=== PATIENT | female | born 1960 | race Caucasian/White ===

== ENCOUNTER 2016-09-01 13:13 | Inpatient (IN) | payer MEDICAID ==
[~2016-09-01] VITALS: Ht 154.9 cm; Wt 69.9 kg
[~2016-09-01 13:13] MED LIST: ACT30 PO; ALDACTONE25 MG PO; AMA1 PO; AMARYL4 MG PO; APAP500 MG PO; APR25 PO; ATA25 PO; ATENOLOL25 MG PO; CALCITRIOL0.25 MCG PO; CIPRO500 MG PO; CIPROFLOXACIN250 M2 PO; COR3 PO; COZ25 PO; DILTIAZEM HCL240 MG PO; FERROUS SULFAT325 M2 PO; FUROSEMIDE40 MG PO; GLIPIZIDE2.5 M1 PO; GLU850 PO; HCTZ/LISINOPRIL1 TA1 PO; HYDRALAZINE HCL25 MG PO; HYDRALAZINE HYD50 MG PO; INSN SC; INSULIN; KEFLEX500 MG PO; LABETALOL HYDR100 MG PO; LAC PO; LASIX40 MG PO; LEVAQUIN500 MG PO; LIPI20 PO; LIPITOR80 MG PO; LOT20 PO; NEU300 PO; NOR10 PO; ONDANSETRON4 M3 SL; RANITIDINE HCL150 M1 PO; REG5 PO; REGLAN10 MG PO; RENVELA800 M1 PO; SIMVASTATIN20 M1 PO; SODIUM BICARBO650 MG PO; TAMOXIFEN CITRA20 MG PO; TRAMADOL HCL50 MG PO; VITAMIN D50000 I4 PO; ZOVIRAX400 MG PO
[2016-09-01 14:22] LABS: PLATELET COUNT 225 x10^3mcL (130-400)
[2016-09-01 14:36] LABS: RED CELL DISTRIBUTION WIDTH 16.3 % (11.5-14.5)
[2016-09-01 14:38] LABS: BILIRUBIN TOTAL 0.41 mg/dL (0.20-1.00); CALCIUM 8.3 mg/dL (8.5-10.1); CARBON DIOXIDE 28.2 mmol/L (21-32); TOTAL PROTEIN, SERUM 7.5 g/dL (6.4-8.2)
[2016-09-01 14:39] LABS: ALBUMIN 3.3 g/dL (3.4-5.0)
[2016-09-01 14:41] LABS: CREATININE SERUM 6.5 mg/dL (0.6-1.0)
[2016-09-01 14:55] LABS: BAND NEUTROPHIL 7 % (0-10); BASOPHIL 0 % (0-2); MONOCYTE 5 % (0-7); SEGMENTED NEUTROPHILS 81 % (37-75); rbc morphology (normal/abnorm) ABNORMAL (NORMAL)
[2016-09-01] MEDS ORDERED: NEXIUM20 MG PO (18:05)
[2016-09-01] MEDS ORDERED: REN800 PO (18:05)
[2016-09-01] MEDS ORDERED: RENA-VITE RX1 TAB PO (18:06)
[2016-09-01] MEDS ORDERED: SENSIPAR30 M1 PO (18:07)
[2016-09-01] MEDS ORDERED: NOL10 PO (18:08)
[2016-09-01] MEDS ORDERED: COR6 PO (18:16)
[2016-09-01 20:23] VITALS: BP 158/76
[2016-09-01 20:35] LABS: CHOLESTEROL/HDL RATIO 4.2; MAGNESIUM 2.4 mg/dL (1.8-2.4); PHOSPHOROUS 5.2 mg/dL (2.5-4.9)
[2016-09-01 20:44] LABS: T3 TOTAL 0.75 ng/mL
[2016-09-01 21:03] LABS: FREE T4 1.54 ng/dL (0.76-1.46); FREE THYROXINE INDEX 3.9 ug/dL (1.4-4.5)
[2016-09-01 22:58] VITALS: BP 140/46
[2016-09-02 05:23] VITALS: BP 120/56
[2016-09-02 05:30] LABS: microscopic required? YES; urine erythrocyte 1+ (NEGATIVE)
[2016-09-02 05:39] LABS: AMPHETAMINE QUAL UR NONE DETECTED (NEG <=1000)
[2016-09-02 06:34] LABS: CALCIUM 7.6 mg/dL (8.5-10.1); CARBON DIOXIDE 26.5 mmol/L (21-32); MAGNESIUM 2.2 mg/dL (1.8-2.4); PHOSPHOROUS 7.9 mg/dL (2.5-4.9); POTASSIUM SERUM 4.4 mmol/L (3.5-5.1)
[2016-09-02 06:37] LABS: CREATININE SERUM 7.2 mg/dL (0.6-1.0)
[2016-09-02 07:03] LABS: BASOPHIL % 0.3 % (0-2); PLATELET COUNT 196 x10^3mcL (130-400)
[2016-09-02 07:07] LABS: RED CELL DISTRIBUTION WIDTH 16.2 % (11.5-14.5)
[2016-09-02 13:38] VITALS: BP 101/47
[2016-09-02 16:00] VITALS: BP 141/57
[2016-09-02 17:46] VITALS: BP 141/59
[2016-09-02 21:59] VITALS: BP 99/52
[2016-09-03 06:14] VITALS: BP 96/55
[2016-09-03 06:18] LABS: PLATELET COUNT 184 x10^3mcL (130-400)
[2016-09-03 06:46] LABS: CARBON DIOXIDE 28.3 mmol/L (21-32); PHOSPHOROUS 5.9 mg/dL (2.5-4.9); POTASSIUM SERUM 3.9 mmol/L (3.5-5.1)
[2016-09-03 06:51] LABS: ALBUMIN 2.6 g/dL (3.4-5.0)
[2016-09-03 06:52] LABS: CREATININE SERUM 5.3 mg/dL (0.6-1.0)
[2016-09-03 07:19] LABS: RED CELL DISTRIBUTION WIDTH 16.3 % (11.5-14.5)
[2016-09-03 10:38] VITALS: BP 134/59
[2016-09-03 10:49] LABS: ATYPICAL LYMPH 1 %; BAND NEUTROPHIL 5 % (0-10); BASOPHIL 0 % (0-2); MONOCYTE 20 % (0-7); SEGMENTED NEUTROPHILS 47 % (37-75); rbc morphology (normal/abnorm) ABNORMAL (NORMAL)
[2016-09-03 10:51] LABS: PLATELET MORPHOLOGY PLATELETS DECREASED
[2016-09-03 17:00] VITALS: BP 134/59
[2016-09-03] MEDS ORDERED: LEVAQUIN500 M1 PO (17:00)
[2016-09-03] MEDS ORDERED: FLA250 PO (17:01)
[2016-09-03] MEDS ORDERED: LAC PO (17:01)
== END 2016-09-03 17:37 | disposition home or self-care (01) | DRG 720 ==
LOC: ED 13:13 → DU 19:13 → MU 09-03 13:09
PROVIDERS: Emergency Medicine; Family Medicine; ADMIT Family Medicine
DX: A41.9 Sepsis, unspecified organism (principal); N17.0 Acute kidney failure with tubular necrosis; E43 Unspecified severe protein-calorie malnutrition; N18.6 End stage renal disease; D68.69 Other thrombophilia; E87.8 Other disorders of electrolyte and fluid balance, not elsewhere classified; E11.65 Type 2 diabetes mellitus with hyperglycemia; E87.1 Hypo-osmolality and hyponatremia; C50.911 Malignant neoplasm of unspecified site of right female breast; A04.9 Bacterial intestinal infection, unspecified; E83.39 Other disorders of phosphorus metabolism; M43.06 Spondylolysis, lumbar region; K21.9 Gastro-esophageal reflux disease without esophagitis; K42.9 Umbilical hernia without obstruction or gangrene; E83.51 Hypocalcemia; N20.0 Calculus of kidney; Z99.2 Dependence on renal dialysis; M62.50 Muscle wasting and atrophy, not elsewhere classified, unspecified site; Z79.810 Long term (current) use of selective estrogen receptor modulators (SERMs)
CPT/HCPCS: 80307; 82962; 83880; 84439; 87046; 87046-59; C9113; J1940; J1956; J2270; J2405; J2765; J3490; J7030; J7040; Q0092

== ENCOUNTER 2016-09-14 05:26 | Emergency (ER) | payer MEDICAID ==
[~2016-09-14 05:26] MED LIST changes: +COR6 PO; +FLA250 PO; +LEVAQUIN500 M1 PO; +NEXIUM20 MG PO; +NOL10 PO; +REN800 PO; +RENA-VITE RX1 TAB PO; +SENSIPAR30 M1 PO
[2016-09-14 06:14] VITALS: BP 182/81
== END 2016-09-14 06:14 | disposition home or self-care (01) ==
LOC: ED 05:26
DX: R68.84 Jaw pain (principal); I12.0 Hypertensive chronic kidney disease with stage 5 chronic kidney disease or end stage renal disease; N18.6 End stage renal disease

== ENCOUNTER 2016-10-18 06:05 | Emergency (ER) | payer MEDICAID ==
[2016-10-18 07:13] LABS: BASOPHIL % 0.9 % (0-2); PLATELET COUNT 211 x10^3mcL (130-400)
[2016-10-18 07:19] LABS: BILIRUBIN TOTAL 0.3 mg/dL (0.20-1.00); CALCIUM 9.1 mg/dL (8.5-10.1); CARBON DIOXIDE 26.5 mmol/L (21-32); POTASSIUM SERUM 5.1 mmol/L (3.5-5.1); TOTAL PROTEIN, SERUM 7.3 g/dL (6.4-8.2)
[2016-10-18 07:27] LABS: ALBUMIN 3.3 g/dL (3.4-5.0)
[2016-10-18 07:28] LABS: CREATININE SERUM 7.1 mg/dL (0.6-1.0)
[2016-10-18 07:40] VITALS: BP 120/57
== END 2016-10-18 07:40 | disposition home or self-care (01) ==
LOC: ED 06:05
PROVIDERS: Emergency Medicine
DX: I12.0 Hypertensive chronic kidney disease with stage 5 chronic kidney disease or end stage renal disease (principal); E11.22 Type 2 diabetes mellitus with diabetic chronic kidney disease; N18.6 End stage renal disease; K21.9 Gastro-esophageal reflux disease without esophagitis; Z99.2 Dependence on renal dialysis; Z85.3 Personal history of malignant neoplasm of breast
CPT/HCPCS: 83880; J2405; J3490

== ENCOUNTER 2017-02-28 11:44 | Inpatient (IN) | payer MEDICAID ==
[~2017-02-28] VITALS: Ht 154.9 cm; Wt 74.5 kg
[~2017-02-28 11:44] MED LIST changes: -FUROSEMIDE40 MG PO
[2017-02-28 13:02] LABS: BASOPHIL % 0.2 % (0-2); PLATELET COUNT 233 x10^3mcL (130-400)
[2017-02-28 13:04] LABS: CALCIUM 8.5 mg/dL (8.5-10.1); CREATININE SERUM 3.2 mg/dL (0.6-1.0); POTASSIUM SERUM 4.3 mmol/L (3.5-5.1)
[2017-02-28 13:07] LABS: RED CELL DISTRIBUTION WIDTH 15.5 % (11.5-14.5)
[2017-02-28 13:08] LABS: BILIRUBIN TOTAL 0.3 mg/dL (0.20-1.00); TOTAL PROTEIN, SERUM 7.7 g/dL (6.4-8.2)
[2017-02-28 13:09] LABS: ALBUMIN 3.2 g/dL (3.4-5.0)
[2017-02-28 15:16] VITALS: BP 188/78
[2017-02-28 16:28] LABS: CHOLESTEROL/HDL RATIO 4.8; MAGNESIUM 2.2 mg/dL (1.8-2.4); PHOSPHOROUS 3.8 mg/dL (2.5-4.9)
[2017-02-28 16:38] LABS: T3 TOTAL 0.89 ng/mL
[2017-02-28 16:56] LABS: FREE T4 1.24 ng/dL (0.76-1.46); FREE THYROXINE INDEX 3.8 ug/dL (1.4-4.5); T4(THYROXINE) 9.5 ug/dL (4.7-13.3)
[2017-02-28 21:05] VITALS: BP 167/71
[2017-03-01 05:37] VITALS: BP 128/59
[2017-03-01 07:06] LABS: BASOPHIL % 0.2 % (0-2); PLATELET COUNT 225 x10^3mcL (130-400); RED CELL DISTRIBUTION WIDTH 15.6 % (11.5-14.5)
[2017-03-01 08:07] LABS: CALCIUM 8.6 mg/dL (8.5-10.1); CARBON DIOXIDE 27.9 mmol/L (21-32); MAGNESIUM 2.4 mg/dL (1.8-2.4); PHOSPHOROUS 5.5 mg/dL (2.5-4.9)
[2017-03-01 08:13] LABS: CREATININE SERUM 4.6 mg/dL (0.6-1.0)
[2017-03-01] MEDS ORDERED: LIPI10 PO (13:19)
[2017-03-01] MEDS ORDERED: PRILOSEC OTC20 M1 PO (13:20)
[2017-03-01 13:43] VITALS: BP 128/59
[2017-03-01 14:09] VITALS: BP 133/51
== END 2017-03-01 16:27 | disposition home or self-care (01) | DRG 243 ==
LOC: ED 11:44 → DU 14:00
PROVIDERS: Emergency Medicine; ADMIT Family Medicine
DX: K21.9 Gastro-esophageal reflux disease without esophagitis (principal); G93.41 Metabolic encephalopathy; I42.9 Cardiomyopathy, unspecified; I12.0 Hypertensive chronic kidney disease with stage 5 chronic kidney disease or end stage renal disease; E44.0 Moderate protein-calorie malnutrition; E11.22 Type 2 diabetes mellitus with diabetic chronic kidney disease; N18.6 End stage renal disease; E11.65 Type 2 diabetes mellitus with hyperglycemia; C50.911 Malignant neoplasm of unspecified site of right female breast; E87.1 Hypo-osmolality and hyponatremia; E87.8 Other disorders of electrolyte and fluid balance, not elsewhere classified; I16.0 Hypertensive urgency; D63.1 Anemia in chronic kidney disease; E78.5 Hyperlipidemia, unspecified; E66.9 Obesity, unspecified; Z68.31 Body mass index [BMI] 31.0-31.9, adult; Z90.11 Acquired absence of right breast and nipple; Z79.810 Long term (current) use of selective estrogen receptor modulators (SERMs); Z99.2 Dependence on renal dialysis; Y84.1 Kidney dialysis as the cause of abnormal reaction of the patient, or of later complication, without mention of misadventure at the time of the procedure; Y92.009 Unspecified place in unspecified non-institutional (private) residence as the place of occurrence of the external cause
CPT/HCPCS: 82962; 83880; 84439; J1815; J2270; J2405; J7050; Q0092

== ENCOUNTER 2017-07-08 07:41 | Inpatient (IN) | payer MEDICAID ==
[~2017-07-08] VITALS: Ht 154.9 cm; Wt 78.2 kg
[~2017-07-08 07:41] MED LIST changes: +LIPI10 PO; +PRILOSEC OTC20 M1 PO
[2017-07-08 07:53] VITALS: Ht 154.9 cm; Wt 78.2 kg
[2017-07-08 10:09] LABS: BASOPHIL % 0.3 % (0-2); PLATELET COUNT 247 x10^3mcL (130-400)
[2017-07-08 10:15] LABS: RED CELL DISTRIBUTION WIDTH 17.1 % (11.5-14.5)
[2017-07-08 10:34] LABS: BILIRUBIN TOTAL 0.3 mg/dL (0.20-1.00); CALCIUM 8.1 mg/dL (8.5-10.1); CARBON DIOXIDE 31.7 mmol/L (21-32); TOTAL PROTEIN, SERUM 7.6 g/dL (6.4-8.2)
[2017-07-08 10:36] LABS: ALBUMIN 3.3 g/dL (3.4-5.0); CREATININE SERUM 5.7 mg/dL (0.6-1.0)
[2017-07-08 14:24] LABS: MAGNESIUM 2.5 mg/dL (1.8-2.4)
[2017-07-08] MEDS ORDERED: ATENOLOL25 MG PO (14:45)
[2017-07-08 14:53] LABS: FREE T4 1.09 ng/dL (0.76-1.46); FREE THYROXINE INDEX 2.9 ug/dL (1.4-4.5); T4(THYROXINE) 7.9 ug/dL (4.7-13.3)
[2017-07-08 15:46] VITALS: BP 134/59
[2017-07-08 15:54] LABS: T3 TOTAL 0.92 ng/mL
[2017-07-08] MEDS ORDERED: GOOD SENSE OMEP20 MG PO (19:10)
[2017-07-08] MEDS ORDERED: RENA-VITE1 TAB PO (19:10)
[2017-07-08] MEDS ORDERED: GLUCOTROL5 MG PO ×2 (19:13→19:14)
[2017-07-08 19:45] VITALS: BP 154/50
[2017-07-09 05:27] VITALS: BP 129/56
[2017-07-09 07:27] LABS: BASOPHIL % 0.2 % (0-2); PLATELET COUNT 232 x10^3mcL (130-400)
[2017-07-09 07:35] LABS: RED CELL DISTRIBUTION WIDTH 16.9 % (11.5-14.5)
[2017-07-09 07:39] LABS: CALCIUM 8.1 mg/dL (8.5-10.1); CARBON DIOXIDE 23.6 mmol/L (21-32); MAGNESIUM 2.6 mg/dL (1.8-2.4); PHOSPHOROUS 8.5 mg/dL (2.5-4.9)
[2017-07-09 07:40] LABS: CREATININE SERUM 6.9 mg/dL (0.6-1.0); POTASSIUM SERUM 6.3 mmol/L (3.5-5.1)
[2017-07-09 09:21] VITALS: BP 143/53
[2017-07-09 14:23] VITALS: BP 121/57
[2017-07-09 16:10] VITALS: BP 124/57
[2017-07-09 20:40] VITALS: BP 122/53
[2017-07-09 22:33] LABS: CARBON DIOXIDE 28.6 mmol/L (21-32); CREATININE SERUM 3.6 mg/dL (0.6-1.0); POTASSIUM SERUM 3.8 mmol/L (3.5-5.1)
[2017-07-09 22:37] LABS: CALCIUM 5.7 mg/dL (8.5-10.1)
[2017-07-09 23:24] LABS: CARBON DIOXIDE 23.5 mmol/L (21-32)
[2017-07-09 23:27] LABS: CREATININE SERUM 3.3 mg/dL (0.6-1.0)
[2017-07-09 23:28] LABS: CALCIUM 5.7 mg/dL (8.5-10.1)
[2017-07-10 03:30] LABS: UA SPECIFIC GRAVITY 1.015 (1.005-1.035); microscopic required? YES; urine erythrocyte TRACE (NEGATIVE)
[2017-07-10 03:38] LABS: AMPHETAMINE QUAL UR NONE DETECTED (NEG <=1000)
[2017-07-10 05:24] VITALS: BP 127/51
[2017-07-10 06:47] LABS: BASOPHIL % 0.6 % (0-2); PLATELET COUNT 221 x10^3mcL (130-400)
[2017-07-10 06:49] LABS: RED CELL DISTRIBUTION WIDTH 17.1 % (11.5-14.5)
[2017-07-10 07:08] LABS: CALCIUM 6.2 mg/dL (8.5-10.1); CARBON DIOXIDE 27.3 mmol/L (21-32); MAGNESIUM 2.1 mg/dL (1.8-2.4); PHOSPHOROUS 7.8 mg/dL (2.5-4.9); POTASSIUM SERUM 4.2 mmol/L (3.5-5.1)
[2017-07-10 07:56] LABS: CREATININE SERUM 4.4 mg/dL (0.6-1.0)
[2017-07-10 09:30] VITALS: BP 130/49
[2017-07-10] MEDS ORDERED: LAC PO (09:39)
[2017-07-10] MEDS ORDERED: CLINDAMYCIN HC300 MG PO (09:39)
[2017-07-10 13:50] VITALS: BP 142/62
== END 2017-07-10 14:01 | disposition home or self-care (01) | DRG 344 ==
LOC: ED 07:41 → DU 13:23
PROVIDERS: Emergency Medicine; Family Medicine
PROC: 5A1D70Z Performance of Urinary Filtration, Intermittent, Less than 6 Hours Per Day (ICD-10-PCS; principal; 2017-07-08)
DX: E11.628 Type 2 diabetes mellitus with other skin complications (principal); M86.9 Osteomyelitis, unspecified; N17.0 Acute kidney failure with tubular necrosis; E11.621 Type 2 diabetes mellitus with foot ulcer; E11.22 Type 2 diabetes mellitus with diabetic chronic kidney disease; L03.116 Cellulitis of left lower limb; I12.0 Hypertensive chronic kidney disease with stage 5 chronic kidney disease or end stage renal disease; N18.6 End stage renal disease; S92.405A Nondisplaced unspecified fracture of left great toe, initial encounter for closed fracture; L97.529 Non-pressure chronic ulcer of other part of left foot with unspecified severity; I12.9 Hypertensive chronic kidney disease with stage 1 through stage 4 chronic kidney disease, or unspecified chronic kidney disease; D63.1 Anemia in chronic kidney disease; E11.40 Type 2 diabetes mellitus with diabetic neuropathy, unspecified; G43.909 Migraine, unspecified, not intractable, without status migrainosus; E11.65 Type 2 diabetes mellitus with hyperglycemia; E78.5 Hyperlipidemia, unspecified; E66.9 Obesity, unspecified; K29.70 Gastritis, unspecified, without bleeding; E87.5 Hyperkalemia; E83.39 Other disorders of phosphorus metabolism; Z79.899 Other long term (current) drug therapy; Z82.49 Family history of ischemic heart disease and other diseases of the circulatory system; Z83.3 Family history of diabetes mellitus; Z99.2 Dependence on renal dialysis; Z85.3 Personal history of malignant neoplasm of breast; Z90.11 Acquired absence of right breast and nipple; Z68.31 Body mass index [BMI] 31.0-31.9, adult; X58.XXXA Exposure to other specified factors, initial encounter; Y93.89 Activity, other specified; Y92.89 Other specified places as the place of occurrence of the external cause; Y99.8 Other external cause status; E11.69 Type 2 diabetes mellitus with other specified complication
CPT/HCPCS: 82962; 83880; 84439; 87804; 97110-GP; 97116-GP; 97530-GP; J1885; J2405; J2543; J3370; J3490; J7030; J7050; Q0092

== ENCOUNTER 2018-05-03 01:11 | Inpatient (IN) | payer MEDICAID ==
[~2018-05-03] VITALS: Ht 165.1 cm; Wt 76.5 kg
[~2018-05-03 01:11] MED LIST changes: +CLINDAMYCIN HC300 MG PO; +GLUCOTROL5 MG PO; +GOOD SENSE OMEP20 MG PO; +RENA-VITE1 TAB PO
--- NOTE | 2018-05-03 01:38 | NUR ---
DR LEDESMA BEDSIDE FOR MSE.
[2018-05-03 02:20] LABS: BASOPHIL % 1.8 % (0-2); PLATELET COUNT 295 x10^3mcL (130-400)
[2018-05-03 02:26] LABS: RED CELL DISTRIBUTION WIDTH 15.7 % (11.5-14.5)
[2018-05-03 02:47] LABS: BILIRUBIN TOTAL 0.69 mg/dL (0.20-1.00); CALCIUM 9.6 mg/dL (8.5-10.1); CARBON DIOXIDE 30.3 mmol/L (21-32); TOTAL PROTEIN, SERUM 7.7 g/dL (6.4-8.2)
--- NOTE | 2018-05-03 02:47 | NUR ---
PT TO ED WITH C/O HIGH BLOOD PRESSURE AT HOME READING 170'S, FEVER, COUGH AND VOMITING. PT DENIES TAKING MEDICATION FOR FEVER AT HOME. PT WITH NO COUGH NOTED AT THIS TIME. PT SKIN IS HOT TO TOUCH, PT NOTED WITH INTERMITTENT EPISODES OF CHILLS. PT A&OX4,NO ACUTE DISTRESS NOTED, DENIES HAVING PAIN AT THIS TIME. PT ALSO NOTED WITH OPEN WOUND TO RIGHT SIDE OF NECK BETWEEN CREASE OF SKIN. PT DOES NOT RECALL INJURING NECK. PT WITH SHUNT TO LEFT ARM AND DIALYSIS PORT TO RIGHT CHEST WALL. PT AT PT SIDE AT THIS TIME.
[2018-05-03 02:50] LABS: ALBUMIN 3.3 g/dL (3.4-5.0); CREATININE SERUM 6.1 mg/dL (0.6-1.0)
--- NOTE | 2018-05-03 03:34 | NUR ---
PATIENT ASLEEP IN BED, NO S/S OF ACUTE DISTRESS NOTED, FAMILY AT BEDSIDE
[2018-05-03] MEDS ORDERED: HYDRALAZINE HY100 MG PO (06:20)
[2018-05-03] MEDS ORDERED: GOOD SENSE ASPI81 M3 PO (06:22)
[2018-05-03] MEDS ORDERED: GABAPENTIN100 M2 PO (06:22)
[2018-05-03] MEDS ORDERED: LIPITOR80 MG PO (06:22)
[2018-05-03 06:57] LABS: MAGNESIUM 1.9 mg/dL (1.8-2.4); PHOSPHOROUS 2.5 mg/dL (2.5-4.9)
[2018-05-03 06:58] LABS: CHOLESTEROL/HDL RATIO 2.5
[2018-05-03 07:06] LABS: FREE T4 1.31 ng/dL (0.76-1.46); FREE THYROXINE INDEX 3.8 ug/dL (1.4-4.5); T4(THYROXINE) 10.8 ug/dL (4.7-13.3)
--- NOTE | 2018-05-03 07:14 | NUR ---
PT ASLEEP, EASY TO AROUSE AWAKE; AAOX4; BREATHING E/U. REMAINS ON FULL MONITORS. LIGHTS OFF FOR COMFORT. CALL LIGHT IN REACH.
[2018-05-03 07:36] LABS: T3 TOTAL 1.12 ng/mL
--- NOTE | 2018-05-03 07:36 | NUR ---
REPORT GIVEN TO MALINDA ROSARIO RN
--- NOTE | 2018-05-03 08:35 | NUR ---
RECEIVED PT FROM ED VIA CBIT A/S. AA/OX4. FOLLOWS COMPLEX COMMANDS, RESPONDS TO VERBAL STIMULI, FACE SYMMETRICAL, SPEECH CLEAR. HX: STROKE (MAR, 2018, NO RESIDUAL DEFICITS NOTED) AZERBAIJANI SPEAKING. NO AMBRIZ. NO DIZZINESS. TEMPERATURE ELEVATED 103.3F, COOLING MEASURES STARTED. DENIES N/V. COMPLAINT OF CHILLS. WILL NOTIFY PHYSICIAN IMMEDIATELY. DENIES PAIN. NSR ON TELE 31, JR 97, BP 144/50, RR 14, NO SOB ON ROOM AIR, RESPIRATIONS EVEN/UNLABORED. CHEST EXPANSION SYMMETRICAL. DENIES SOB, LUNG SOUNDS CTA BILATERALLY. PULSES +2 BUE/BLE. NO EDEMA. CAP REFILLS <3 SEC BUE/BLE. WOUND NOTED TO RIGHT NECK, LIDA, NO DRAINAGE, SEE CHART FOR PICTURES. IV WNL TO RH, NO REDNESS, NO SWELLING, NO INFILTRATION. AV SHUNT TO VANDANA, +THRILL/BRUIT. TREVOR CATH TO RIGHT CHEST, DRESSING CDI. RECEIVED HD FRIDAY, FRIDAY, FRIDAY. SCANT URINE OUTPUT. AT BEDSIDE. PT ORIENTED TO ROOM/SURROUNDINGS. SIDE RAILS UP X2. BED ALARM ON. PT USES WALKER AT HOME. AMBULATORY WITH ASSIST, GAIT UNSTEADY, NEEDS ASSISTANCE. INSTRUCTED PT TO USE CALL LIGHT TO CALL FOR ASSISTANCE BEFORE AMBULATING. PT VERBALIZED UNDERSTANDING. WEARS GLASSES AND DENTURES. BELONGINGS WITH PATIENT.
[2018-05-03 10:08] VITALS: BP 144/50
--- NOTE | 2018-05-03 10:50 | NUR ---
TEMP 97.9F ORAL. NO S/S OF ACUTE DISTRESS. RESTING IN BED WITH BOTH EYES CLOSED. EASILY AROUSABLE TO VERBAL STIMULI. SCDS IN PLACE. NO S/S OF PAIN. NO SOB ON ROOM AIR. PT CALM/COOPERATIVE LAYING IN BED. FALL PRECAUTIONS IN PLACE. BED IN LOW POSITION. CALL LIGHT WITHIN REACH. WILL CONTINUE TO MONITOR.
--- NOTE | 2018-05-03 11:44 | NUR ---
PT LAYING IN BED RESTING. NO S/S OF ACUTE DISTRESS. NO S/S OF PAIN. CALM/COOPERATIVE. IV WNL, SALINE LOCKED. FALL PRECAUTIONS IN PLACE. BED IN LOW POSITION. CALL LIGHT WITHIN REACH. WILL CONTINUE TO MONITOR.
[2018-05-03 12:23] VITALS: BP 148/60
--- NOTE | 2018-05-03 14:48 | NUR ---
PT COMPLAINT OF AMBRIZ/LLE PAIN, RATES PAIN 11/25. ACUTE. ACHING. GIVEN MED, SEE MAR. AA/OX4. STRAIGHT CATH COMPLETED, URINE OUTPUT 135CC, CLOUDY, FOUL ODOR, YELLOW. TOLERATED WELL. NO S/S OF ACUTE DISTRESS. NO SOB ON ROOM AIR. NO CHEST PAIN. PT CALM/COOPERATIVE LAYING IN BED. FALL PREC. IN PLACE. BED IN LOW POSITION. CALL LIGHT WITHIN REACH. WILL CONTINUE TO MONITOR.
--- NOTE | 2018-05-03 15:02 | NUR ---
PT COMPLAINT OF NAUSEA, GIVEN MEDICATION SEE JUL. PT SHIVERING. TEMP 101.1F ORAL. COOLING MEASURES STARTED. DR. LEDBETTER AWARE. IV ANTIBIOTICS ORDERED. DAUGHTER AT BEDSIDE. DR. LEDBETTER AT BEDSIDE TALKING TO PT/DAUGHTER. BED IN LOW POSITION. CALL LIGHT WITHIN REACH. FALL PRECAUTIONS IN PLACE. WILL CONTINUE TO MONITOR.
[2018-05-03 15:36] VITALS: Ht 165.1 cm; Wt 76.5 kg
[2018-05-03 16:40] VITALS: BP 146/59
--- NOTE | 2018-05-03 18:39 | NUR ---
PT FOUND LAYING IN BED RESTING WITH BOTH EYES CLOSED. NO S/S OF ACUTE DISTRESS. NO S/S OF PAIN. NO CHILLS. NO FEVER. NO SOB ON ROOM AIR. NO CHEST PAIN. BED IN LOW POSITION. CALL LIGHT WITHIN REACH. FALL PRECAUTIONS IN PLACE. WILL ENDORSE TO ONCOMING SHIFT.
[2018-05-03 19:06] LABS: UA SPECIFIC GRAVITY 1.025 (1.005-1.035); microscopic required? YES; urine erythrocyte 1+ (NEGATIVE)
--- NOTE | 2018-05-03 19:41 | NUR ---
aao x 4. speech clear and appropriate. no facial droop noted. generalized weakness. breathing even and unlabored on room air. lung sounds clear. vomitted about 300ml after eating. denies having abd pain. zofran was administered by day shift nurse janell. saline lock to right hand. sinus rhytnm on tele. hob elevated 45 deg. call light within easy reach.
--- NOTE | 2018-05-03 21:00 | NUR ---
EYES CLOSED, EASILY AWAKENED. STATED HAVING NO MORE NAUSEA. HOB KEPT ELEVATED 40 DEG. CALL LIGHT WITHIN EASY REACH.
[2018-05-03 21:09] VITALS: BP 135/57
--- NOTE | 2018-05-04 02:05 | NUR ---
eyes closed, breathing even and unlabored on room air. hob kept elevated 30 deg. call light within easy reach.
--- NOTE | 2018-05-04 04:05 | NUR ---
awake and alert, stated she is comfortable.
[2018-05-04 05:00] VITALS: BP 144/53
--- NOTE | 2018-05-04 06:32 | NUR ---
temp 98.6f. saline lock to right hand free from redness or infiltration. breathing even and unlabored.
--- NOTE | 2018-05-04 07:02 | NUR ---
eyes closed, breathing unlabored. endorsed to nurse marilyn
--- NOTE | 2018-05-04 07:40 | NUR ---
AAO X4.MONGOLIAN MOSTLY.LUNGS CLEAR.ON SR ON THE MONITOR.IV SALINE LOCKED.VANDANA WITH AV SHUNT PER PT IT'S NOT WORKING.R CHEST WITH TREVOR FOR DIALYSIS.CALL LIGHT WITHIN REACH.INSTRUCTED TO CALL FOR ANY PAIN/DISCOMOFRT.WILL CONTINUE TO MONITOR PT.
[2018-05-04 09:12] VITALS: BP 124/45
--- NOTE | 2018-05-04 09:33 | NUR ---
Nutrition Note Nursing Trigger received "Admitted with potential risk diagnosis" on 05/04. Pt admitted with fever and UTI per H&P documentations. Hx ESRD on HD MWF. Pt does not meet high risk criteria per nutrition care policy and standards. Pt will be assessed as moderate risk and initial assessment due 05/07-05/09.
--- NOTE | 2018-05-04 11:30 | NUR ---
INFORMED BY THE STUDENT NURSE ONELIA THAT PT'S BLOOD SUGAR=59 MG/DL.GAVE APPLE JUICE.RECHECKED=61 MG/DL.PT ASSYPTOMATIC.INFORMED ABOUT THE BLOOD SUGAR.
[2018-05-04 13:28] LABS: PLATELET COUNT 264 x10^3mcL (130-400)
[2018-05-04 13:31] LABS: RED CELL DISTRIBUTION WIDTH 17.9 % (11.5-14.5)
[2018-05-04 13:49] VITALS: BP 128/54
[2018-05-04 13:55] LABS: CALCIUM 9.1 mg/dL (8.5-10.1); CARBON DIOXIDE 27.5 mmol/L (21-32); PHOSPHOROUS 4.7 mg/dL (2.5-4.9); POTASSIUM SERUM 4.3 mmol/L (3.5-5.1)
[2018-05-04 13:58] LABS: CREATININE SERUM 8.6 mg/dL (0.6-1.0)
[2018-05-04 14:02] LABS: BAND NEUTROPHIL 7 % (0-10); BASOPHIL 0 % (0-2); MONOCYTE 10 % (0-7); SEGMENTED NEUTROPHILS 74 % (37-75)
[2018-05-04 14:03] LABS: PLATELET MORPHOLOGY GIANT PLATELET SEEN; rbc morphology (normal/abnorm) ABNORMAL (NORMAL)
--- NOTE | 2018-05-04 15:53 | NUR ---
INFORMED BY DIALYSIS NURSE MILDRED WHILE CHANGING THE DRESSING OF THE TREVOR CATH NOTICED A CRUSTY LIKE IN BETWEEN THE CATH.ALSO NOTED SOME REDNESS AROUND THE CATHETER.TOOK PICTURES.INFORMED .ALSO ASKED HIM IF HE WANTS TO DO CULTURES. SAYS NOT NECESSARY RIGHT NOW.ALSO INFORMED HIM THAT THERE IS NO ODOR .ALSO NOTED A PURULENT DISCHAGE ON THE DRESSING.
[2018-05-04 17:26] VITALS: BP 156/78
--- NOTE | 2018-05-04 17:35 | NUR ---
DIALYSIS DONE WITH 3 L OUT.PT TOLERATED IT WELL.
--- NOTE | 2018-05-04 18:36 | NUR ---
NO SIGNIFICANT CHANGE NOTED.WILL EBNDORSE TO NEXT SHIFT.
--- NOTE | 2018-05-04 20:00 | NUR ---
PT A/A/O X4. DENIES DIZZINESS AND HEADACHE. BREATH SOUNDS CLEAR. BREATHING EVEN AND UNLABORED ON ROOM AIR. DENIES CHEST PAIN AND PRESSURE. BOWEL SOUNDS ACTIVE. NO C/O N/V AND ABD PAIN. WOUND NOTED ON THE RIGHT SIDE OF THE NECK CAKE MAKER. TREVOR CATH NOTED ON THE RIGHT UPPER CHEST WITH DRESSING C/D/I. AV SHUNT NOTED ON THE LEFT UPPER ARM WITH POSITIVE BRUIT AND THRILL. MADE PT COFMORTABLE. PLACED CALL LIGHT WITH IN REACH. WILL CONTINUE TO MONITOR.
[2018-05-04 21:13] VITALS: BP 139/53
--- NOTE | 2018-05-04 21:36 | NUR ---
PATIENTS TEMP 102.2 AND PT C/O ROS LEG PAIN. COOLING MEASURES IMPLEMENTED. GAVE PT NORCO PO. PT TOLERATED IT WELL. WILL CONTINUE TO MONITOR.
--- NOTE | 2018-05-04 22:48 | NUR ---
PT TEMP 98.9. NO C/O PAIN THUS FAR. PT SPO2 88% ON ROOM AIR. PT ON NASAL CANNULA 2L, SPO2 94%. PT TOLERATING IT WELL. DR. SHIN NOTIFIED. WILL CONTINUE TO MONITOR.
--- NOTE | 2018-05-05 01:03 | NUR ---
PT RESTING WITH EYES CLOSED. NO DISTRESS AND DISCOMFORT NOTED. WILL CONTINUE TO MONITOR.
[2018-05-05 05:31] VITALS: BP 140/53
[2018-05-05 06:03] LABS: BASOPHIL % 0.4 % (0-2); PLATELET COUNT 275 x10^3mcL (130-400)
[2018-05-05 06:04] LABS: RED CELL DISTRIBUTION WIDTH 17.2 % (11.5-14.5)
[2018-05-05 06:29] LABS: IRON 9 ug/dL (50-170); TOTAL IRON BINDING CAPACITY 123 ug/dL (250-450)
[2018-05-05 06:37] LABS: CARBON DIOXIDE 29.9 mmol/L (21-32); MAGNESIUM 1.8 mg/dL (1.8-2.4); PHOSPHOROUS 3.3 mg/dL (2.5-4.9); POTASSIUM SERUM 4.3 mmol/L (3.5-5.1)
--- NOTE | 2018-05-05 06:50 | NUR ---
PT QUIET AND RESTING. TEMP 98.5. NO C/O PAIN THUS FAR. MADE PT COMFORTABLE. WILL ENDORSE TO THE AM NURSE ACCORDINGLY.
[2018-05-05 06:58] LABS: CREATININE SERUM 4.6 mg/dL (0.6-1.0)
--- NOTE | 2018-05-05 07:54 | NUR ---
AAO X4.DENIES ANY PAIN/DISCOMFORT.LUNGS CLEAR.ON SR ON THE MONITOR.IV SALINE LOCKED.R CHEST WITH TREVOR CATH FOR DIALYSIS.CALL LIGHT WITHIN REACH.INSTRUCTED TO CALL FOR ANY PAIN/DISCOMFORT.WILL CONTINUE TO MONITOR PT.
[2018-05-05 09:01] VITALS: BP 155/78
[2018-05-05 12:38] VITALS: BP 144/60
--- NOTE | 2018-05-05 13:00 | NUR ---
INFORMED ABOUT URINE CULTURE [id number].PUT PT ON CONTACT ISOLATION.
--- NOTE | 2018-05-05 13:44 | NUR ---
INFORMED DR.LE RODRIGEZ ABOUT THE SPECIMEN COLLECTED FR.THE CRUST BEING REJECTED BY THE LAB.
[2018-05-05 16:16] VITALS: BP 148/58
--- NOTE | 2018-05-05 18:31 | NUR ---
NO SIGNIFICANT CHANGE NOTED.WILL ENDORSE TO NEXT SHIFT.
--- NOTE | 2018-05-05 20:00 | NUR ---
PT A/A/O X4, FAMILY AT BEDSIDE. PT DENIES DIZZINESS AND HEADACHE. RIGHT SIDE OF THE NECK WITH WOUND LIDA. BREATH SOUNDS CLEAR. BREATHING EVEN AND UNLABORED ON ROOM AIR. DENIES CHEST PAIN AND PRESSURE. TREVOR CATH NOTED ON THE RIGHT SIDE OF THE CHEST WITH DRESSING C/D/I. AV SHUNT NOTED ON THE LEFT UPPER ARM CLIENT SOLUTIONS MANAGER POSITIVE BRUIT AND THRILL. BOWEL SOUNDS ACTIVE. NO C/O N/V AND ABD PAIN. IV HEPLOCK INTACT ON THE RIGHT HAND. MADE PT COMFORTABLE. PLACED CALL LIGHT WITH IN REACH. WILL CONTINUE TO MONITOR.
[2018-05-05 20:53] VITALS: BP 146/58
--- NOTE | 2018-05-05 23:22 | NUR ---
SPOKE WITH CARLOS, HEMODIALYSIS NURSE REGARDING SCHEDULE HEMODIALYSIS OF THE PT FOR 05/06/18. CARLOS CONFIRM SHE WILL BE HERE TOMMOROW MORNING FOR THE PT. WILL CONTINUE TO MONITOR.
--- NOTE | 2018-05-06 00:10 | NUR ---
PT C/O FEELING HAVING HEART BURN. DR. SHIN NOTIFIED. ORDERED PEPCID PO. GAVE PT MEDICATION. PT TOLERATED IT WELL. WILL CONTINUE TO MONITOR.
[2018-05-06 05:55] VITALS: BP 129/54
--- NOTE | 2018-05-06 06:09 | NUR ---
PT QUIET AND RESTING. NO FEVER NOTED THUS FAR. IV HEPLOCK INTACT. MADE PT COMFORTABLE. WILL ENDORSE TO THE AM NURSE ACCORDINGLY.
[2018-05-06 06:48] LABS: BASOPHIL % 0.3 % (0-2); PLATELET COUNT 265 x10^3mcL (130-400); RED CELL DISTRIBUTION WIDTH 17.4 % (11.5-14.5)
[2018-05-06 06:57] LABS: CALCIUM 9.7 mg/dL (8.5-10.1); CARBON DIOXIDE 25.6 mmol/L (21-32); MAGNESIUM 1.8 mg/dL (1.8-2.4); PHOSPHOROUS 3.7 mg/dL (2.5-4.9); POTASSIUM SERUM 4.7 mmol/L (3.5-5.1)
[2018-05-06 06:58] LABS: CREATININE SERUM 6.1 mg/dL (0.6-1.0)
--- NOTE | 2018-05-06 07:30 | NUR ---
RECEIVED PT IN NO ACUTE DISTRESS. RESP EVEN AND UNLABORED ON RA. NO C/O PAIN. CONTACT ISOLATION. VANDANA SHUNT, BRUIT/THRILL PRESENT. IV TO R HAND, NO REDNESS OR SWELLING. R UPPER CHEST TREVOR CATH, DRESSING C/D/I. HEMODIALYSIS SCHEDULED FOR TODAY. WOUND TO R SIDE OF NECK, REGIONAL ACCOUNT MANAGER. LAST BM 05/05/18, FORMED. INCONTINENT OF URINE AT TIMES. HOB ELEVATED. BED IN LOW POSITION, CALL LIGHT WITHIN REACH. WILL CONTINUE TO MONITOR.
[2018-05-06 09:12] VITALS: BP 152/52
--- NOTE | 2018-05-06 11:59 | NUR ---
PT RESTING IN BED. NO ACUTE DISTRESS. RESP EVEN AND UNLABORED ON RA. DENIES PAIN. CONTACT ISOLATION. IV TO R HAND WITH NO REDNESS OR SWELLING. CALL LIGHT WTIHIN REACH. VISITOR AT BEDSIDE. WILL CONTINUE TO MONITOR.
[2018-05-06 12:41] VITALS: BP 149/55
[2018-05-06 16:48] VITALS: BP 148/60
--- NOTE | 2018-05-06 17:26 | NUR ---
PT SITTING UP ON THE SIDE OF THE BED. NO ACUTE DISTRESS. NO C/O PAIN. DENIES N/V. SPOKE WITH CARLOS WORKERS COMPENSATION ADJUSTER REGARDING PT NEEDING DIALYSIS TODAY. PER DR. KHLOE ALDRIDGE TO USE PERMACATH FOR DIALYSIS. WILL CONTINUE TO MONITOR.
--- NOTE | 2018-05-06 17:55 | NUR ---
HEMODIALYSIS STARTED AT THIS TIME. PT IN NO ACUTE DISTRESS. SITTING UP ON THE SIDE OF THE BED EATING DINNER. POULTRY PROCESS WORKER AT BEDSIDE. CALL LIGHT WITHIN REACH. WILL CONTINUE TO MONITOR.
--- NOTE | 2018-05-06 18:42 | NUR ---
PT RESTING IN BED. NO ACUTE DISTRESS. HEMODIALYSIS ONGOING. CARE TRANSPORT NURSE AT BEDSIDE. BED IN LOW POSITION, CALL LIGHT WITHIN REACH. WILL ENDORSE TO ONCOMING SHIFT.
--- NOTE | 2018-05-06 20:01 | NUR ---
ASLEEP, EASILY AWAKENED. BREATHING EVEN AND UNLABORED ON ROOM AIR. DIALYSIS ONGOING, NOTED DIALYSIS CATHETER TO RIGHT CHEST IS ACCESSED FOR DIALYSIS. HOB ELEVATED 30 DEG.
[2018-05-06 20:29] VITALS: BP 130/59
--- NOTE | 2018-05-06 21:06 | NUR ---
dialysis completed, dialysis nurse reported net fluid out of 2.4 liters. vital signs of temp 97.0, pr 79, bp 141/68, rr 18.
--- NOTE | 2018-05-06 22:06 | NUR ---
ASSITTED TO RESTROOM.
--- NOTE | 2018-05-06 23:43 | NUR ---
eyes closed, breathing even and unlabored. hob kept elevated 30 deg. call light within easy reach. on contact isolation.
--- NOTE | 2018-05-07 01:48 | NUR ---
DR. KERN CALLED, GAVE TELEPHONE ORDER TO REMOVE DIALYSIS CATHETER BECAUSE IT IS SOURCE OF STAPH BACTEREMIA. INFORMED ANTON ZUÑIGA MAI AWARE.
[2018-05-07 05:22] VITALS: BP 142/50
--- NOTE | 2018-05-07 06:09 | NUR ---
AWAKE AND ALERT, SLEPT THROUGH MOST OF SHIFT. BREATHING EVEN AND UNLABORED. CALL LIGHT WITHIN EASY REACH. KEPT ON CONTACT ISOLATION.
[2018-05-07 06:45] LABS: BASOPHIL % 0.7 % (0-2); PLATELET COUNT 288 x10^3mcL (130-400)
[2018-05-07 07:10] LABS: CALCIUM 9.5 mg/dL (8.5-10.1); CREATININE SERUM 3.8 mg/dL (0.6-1.0); MAGNESIUM 1.8 mg/dL (1.8-2.4); PHOSPHOROUS 3.4 mg/dL (2.5-4.9); POTASSIUM SERUM 3.9 mmol/L (3.5-5.1)
[2018-05-07 07:15] LABS: RED CELL DISTRIBUTION WIDTH 17.3 % (11.5-14.5)
--- NOTE | 2018-05-07 07:19 | NUR ---
awake and alert, sitting up on bed. endorsed to nurse louis
--- NOTE | 2018-05-07 07:25 | NUR ---
RECEIVED PT SITTING UP ON THE SIDE OF THE BED. NO ACUTE DISTRESS. AAOX4. BREATHING EVEN AND UNLABORED ON RA. IV TO R HAND, NO REDNESS OR SWELLING NOTED. VANDANA AV SHUNT, BRUIT/THRILL PRESENT. R UPPER CHEST PERMACATH, DRESSING C/D/I. CONTACT ISOLATION. BED IN LOW POSITION, CALL LIGHT WITHIN REACH. WILL CONTINUE TO MONITOR.
[2018-05-07 09:30] VITALS: BP 162/78
--- NOTE | 2018-05-07 12:48 | NUR ---
PT SITTING UP IN CHAIR. NO ACUTE DISTRESS. AAOX4. CONTACT ISOLATION. IV TO R HAND FOUND WITH CATHETER OUT, INTACT. PT EATING LUNCH AT THIS TIME, WILL PUT NEW IV ACCESS AFTER PT IS DONE EATING. CALL LIGHT WITHIN REACH. WILL CONTINUE TO MONITOR.
[2018-05-07 14:01] VITALS: BP 157/64
--- NOTE | 2018-05-07 14:23 | NUR ---
SPOKE WITH CARLOS MUSCULOSKELETAL PHYSICIAN REGARDING PT SCHEDULED FOR HEMODIALYSIS TOMORROW.
--- NOTE | 2018-05-07 15:02 | NUR ---
NEW IV STARTED ON R HAND 22G, FLUSHED WITH 10 ML NS.
--- NOTE | 2018-05-07 15:34 | NUR ---
Initial Nutrition Assessment Dx: Fever, UTI PMHx: ESRD on HD, HTN, HLD, DM, Past CVA w/residual speech deficits PSHx: AV shunt placement Labs: (05/07) Na 137, K 3.9, BG 155H, BUN 16, Cr 3.8H, Ca 9.5, P 3.4, Mg 1.8, WBC 8.8, H/H 7.9L/24L, A1c 6.5H BG readings (05/05-05/07): 101-190 mg/dL. Most readings <180 mg/dL. Meds: Apresoline, [place] children's aspirin, Colace, D50%, Ferrous sulfate, Humulin, Lipitor, Merrem, Neurontin, [place], Norvasc, Pepcid, Procrit, Prilosec, Tylenol, Vancomycin, Zofran Diet: [facility] PO Intake: (05/07) B: 100% L: 100% (05/06) B: 50% L: 30% D: 75%. Average PO intake 70% x 2 days. Ht: 65" (165 cm) Wt: 179# (81.4 kg) BMI: 29.9 (Overweight) IBW: 125# %IBW: 143% AJBW: 138# (63 kg) UBW: 175-180# Age: 58 y/o female Food Allergies: NKFA Skin: Intact [place]: 19 Edema: None GI: Last BM x 1 (05/07) HD output: (05/07) 2400 mL (05/05) 3000 mL Per H&P, pt. admitted with fever and abdominal pain x 3 days associated with nausea and urinary symptoms. Compliant with nephrology care and reports regular follow up for ESRD maintenance. Pt. seen laying in bed during visit. Reports improving PO intake compared to when she was first admitted, and is tolerating the diet well without GI distress. Scheduled to receive HD tomorrow per pt. Discussed nutrition recommendations with provider Dr. Parker, who was agreeable to implementing interventions. Problem with: No c/o N/V/D/C Problems with: Chewing: N Swallowing: N Current appetite: Fair, improving Recent wt change: None recent %wt change: N/A Vitamin/Supplement use: None Special diet at home: Renal, [facility] Physical activity: None Education: Notified pt. of CCHO diet and associated restrictions and told pt. that the renal diet would be recommended to provider, as pt. is receiving HD. ESRD nutrition therapy/DM diet education handouts in Tajik provided to pt. Estimated Nutritional Needs Based on adjusted body weight 63 kg: Energy: 6773-0288 kcal/d (30-35 kcal/kg-HD maintenance) Protein: 76-88 g/d (1.2-1.4 g/kg)-HD maintenance and preservation of lean body mass Fluid: 7873-3246 ml/d (1 ml/kcal-fluid balance) or per doctor Nutrition Diagnosis 1. Altered nutrition related lab values r/t endocrine and renal dysfunction AEB Cr 3.4, A1c 6.5, and occasional BG readings >180 mg/dL x 2 days. 2. Increased nutrient needs r/t altered metabolic demands AEB pt. undergoing maintenance HD and output range 6126-5917 mL x 2 HD sessions. Intervention/RD recommendations 1. Recommended to change diet to CCHO, renal diet for ESRD on HD and history of DM. 2. Nepro QD, which will provide 425 kcal and 19 g protein for increased nutrient needs. 3. NephroVite QD Monitor/Evaluate Goal: PO intake at least 75% of estimated needs Monitor: PO intake, Labs, GI function, diet tolerance, BG <180 mg/dL F/U in 3-5 days as moderate risk (05/10-05/12)
[2018-05-07 17:43] VITALS: BP 139/61
--- NOTE | 2018-05-07 18:52 | NUR ---
PT SITTING UP ON THE SIDE OF THE BED. NO ACUTE DISTRESS. AAOX4. RESP EVEN AND UNLABORED ON RA. CONTACT ISOLATION. IV ANTBX INFUSING AT THIS TIME, NO REDNESS OR SWELLING. FAMILY AT BEDSIDE. BED IN LOW POSITION, CALL LIGHT WITHIN REACH. WILL ENDORSE TO ONCOMING SHIFT.
--- NOTE | 2018-05-07 19:18 | NUR ---
AAO X 4. SPEECH CLEAR AND APPROPRIATE. BREATHING EVEN AND UNLABORED ON ROOM AIR. SALINE LOCK TO RIGHT HAND FREE FROM REDNESS OR SWELLING. FAMILY MEMBER IN ROOM.
[2018-05-07 20:49] VITALS: BP 166/70
[2018-05-07 21:32] VITALS: BP 152/71
--- NOTE | 2018-05-07 23:55 | NUR ---
awake and alert, breathing even and unlabored. was earlier asleep. call light within easy reach.
[2018-05-08 05:09] VITALS: BP 148/55
--- NOTE | 2018-05-08 06:23 | NUR ---
eyes closed, breathing even and unlabored. saline lock to right hand free from redness or swelling. slept through most of shift. kept on contact isolation.
[2018-05-08 06:53] LABS: BASOPHIL % 0.5 % (0-2); PLATELET COUNT 289 x10^3mcL (130-400)
[2018-05-08 07:08] LABS: CALCIUM 9.3 mg/dL (8.5-10.1); CARBON DIOXIDE 25.4 mmol/L (21-32); MAGNESIUM 2.1 mg/dL (1.8-2.4); PHOSPHOROUS 3.9 mg/dL (2.5-4.9)
[2018-05-08 07:18] LABS: RED CELL DISTRIBUTION WIDTH 17.4 % (11.5-14.5)
--- NOTE | 2018-05-08 07:20 | NUR ---
AAO X4.FAROESE ONLY.DENIES ANY PAIN/DISCOMFORT.LUNGS CLEAR.ON SR ON THE MONITOR.IV SALINE LOCKED.R CHEST WITH TREVOR CATH FOR DIALYSIS .IV TO R HAND SALINE LOCKED.VANDANA WITH AV SHUNT NOT BEING USED.CALL LIGHT WITHIN REACH.INSTRUCTED TO CALL FOR ANY PAIN/DISCOMFORT.WILL CONTINUE TO MONITOR PT.
[2018-05-08 07:44] LABS: CREATININE SERUM 5.7 mg/dL (0.6-1.0)
[2018-05-08 09:00] VITALS: BP 157/67
[2018-05-08 13:01] VITALS: BP 157/67
[2018-05-08] MEDS ORDERED: MER500I IV (13:37)
[2018-05-08] MEDS ORDERED: VANCOMYCIN1 GM/1001 IV (13:39)
--- NOTE | 2018-05-08 14:00 | NUR ---
DIALYSIS DONE WITH 2 L OUT. PER DIALYSIS NURSE PORT GOT CLOGGED.AWAITING FOR TO ORDER ACTIVASE.DIALYSIS NURSE WILL FLUSH THE PORT.
--- NOTE | 2018-05-08 14:31 | NUR ---
ACTIVASE HAS BEEN ORDERED. WAITING FOR PHARMACY TO VERIFY. PT'S TREVOR CATH HAS STOPPED WORKING DURING DIALYSIS. DIALYSIS MADE RN AWARE. DIALYSIS NURSE PAGED AND RECIEVED ORDER FROM DR. EDNA FREDERICK FOR ACTIVASE 2MG IVP. TOTAL OF 4MG. 2MG ON EACH DIALYSIS PORT
--- NOTE | 2018-05-08 16:19 | NUR ---
PER DR.LE RODRIGEZ PT'S DISCHARGE IS CANCELLED.WILL DO MIDLINE INSERTION TOMORROW.
[2018-05-08 16:41] VITALS: BP 150/60
--- NOTE | 2018-05-08 18:25 | NUR ---
NO SIGNIFICANT CHANGE NOTED.TANIAE TO NEXT SHIFT.
--- NOTE | 2018-05-08 19:48 | NUR ---
AWAKE KELLY VERBALLY RESPONISVE. SITTING AT THE EDGE OF THE BED DURING SHIFT REPORT. RESPIRATIION EVEN AND UNLABORED, DIMINISHED LUNG SOUNDS BILATERAL BASES. NO SOB NOTED. AV SHUNT VANDANA NOT FUNCTIONING, RIGHT UPPER ARM TREVOR CATH INTACT FOR TEMPORARY HD ACCESS. PLACED CALL LIGHT WITHIN REACH, INSTRUCTED TO CALL FOR ANY ASSISTANCE NEEDED ND VERBALIZED UNDERSTANDING.
[2018-05-08 21:04] VITALS: BP 127/63
--- NOTE | 2018-05-09 00:01 | NUR ---
EYES CLSOED, NO FACIAL GRIAMCING NOTED. RESPIRATION EVEN AND UNLABORED. CALL LIGHT WITHIN REACH, BED IN LOWEST PPSITION FOR SAFETY.
[2018-05-09 05:18] VITALS: BP 139/57
--- NOTE | 2018-05-09 05:49 | NUR ---
DUE MEDICATIONS GIVEN AND WELL TOLERATED. NO S/S OF GLYCEMIC REACTION. ALL NEEDS ATTENDED.
--- NOTE | 2018-05-09 07:30 | NUR ---
RC'D PT RESTING IN BED WITH NO APPARENT SIGNS OF DISTRESS. A/A/O/X3. DENIES AMBRIZ/DIZZINESS. ON TELE, DENIES CHEST PAIN/PRESSURE. PALP PULSES. AV SHUNT NOTED TO VANDANA, NOT IN USE. RIGHT UPER CHEST TREVOR CATH, WNL. RESPIRATIONS EQUAL AND UNLABORED. ON RA, DENIES SOB. ABDOMEN SOFT AND NONTENDER. ACTIVE BS. DENIES N/V. HD ON MWF. GENERALIZED WEAKNESS. PT DENIES PAIN AT THIS TIME. IV PATENT AND INTACT. BED IN LOW POSITION. CALL LIGHT IN REACH. WILL CONTINUE TO MONITOR
[2018-05-09 08:57] VITALS: BP 139/71
--- NOTE | 2018-05-09 09:10 | NUR ---
AM MEDICATIONS GIVEN. PT TOLERATED WELL. RESPIRATIONS EQUAL AND UNLABORED. DENIES PAIN AT THIS TIME. BED IN LOW POSITION. CALL LIGHT IN REACH. WILL CONTINUE TO MONITOR
--- NOTE | 2018-05-09 11:55 | NUR ---
MD AND TEAM CURRENTLY AT BEDSIDE FOR MIDLINE INSERTION.
[2018-05-09 13:20] VITALS: BP 194/91
--- NOTE | 2018-05-09 14:40 | NUR ---
SIDE SHOW ENTERTAINER REPORTED BP OF 194/91 (125) HR 80. PT DENIES AMBRIZ/DIZZINESS/CP/SOB. DR SANTANA NOTIFIED AND MADE AWARE. AWAITING NEW ORDERS AT THIS TIME
[2018-05-09 17:00] VITALS: BP 160/56
--- NOTE | 2018-05-09 17:57 | NUR ---
PT RESTING IN BED WITH NO APPARENT SIGNS OF DISTRESS. ON TELE, DENIES CHEST PAIN/PRESSURE. RESPIRATIONS EQUAL AND UNLABORED. ON RA, DENIES SOB. RIGHT UPPER CHEST TREVOR CATH IN PLACE, WNL. NO ACUTE SKIN CHANGES NOTED. GENERALIZED WEAKNESS. PT DENIES PAIN AT THIS TIME. IV PATENT AND INTACT. BED IN LOW POSITION. CALL LIGHT IN REACH. WILL ENDORSE TO DAMAGED FREIGHT INSPECTOR RN
[2018-05-09 21:25] VITALS: BP 148/66
--- NOTE | 2018-05-09 23:03 | NUR ---
RECEIVED AWAKE SITTING AT BEDSIDE CAHIR, DENIES ANY PAIN/DISCOMFORT AT THIS TIME. SKIN WARM AND DRY TO TOUCH WITH HEALING WOUND AT THE RIGHT SIDE OF THE NAECK OEN TO AIR. PLAED CALL LIGHT WITHIN REACH, INSTRUCTED TO USE CALL LIGHT NEEDED , VERBALIZED UNDERSTANDING. WILL CONTINUE TO MONITOR.
[2018-05-10] VITALS (7 sets, daily range): BP systolic 135–182; BP diastolic 48–70
--- NOTE | 2018-05-10 | NUR ---
EYES CLOSED. NO FACAIL GRIAMCING NOTED, RESPIRATIONE MIK AND UNLABORED. NO SS OF ACUTE DISTRESS . ALL NEEDS ATTENDED.
--- NOTE | 2018-05-10 06:07 | NUR ---
DUE MEDICATIONS GIVEN AND WELL TOLERATED. ALL NEEDS ATTENDED.
--- NOTE | 2018-05-10 07:15 | NUR ---
RECEIVED REPORT FROM LORENZA OWEN. PT RESTING COMFORTABLY IN BED. TREVOR CATH TO RT UPPER CHEST IS CDI. MIDLINE TO SAMIRA IS PATENT AND INTACT. IV SALINE LOCK TO RT HAND IS PATENT AND INTACT. PT ON ROOM AIR. NO C/O SOB AND NO DISTRESS NOTED. TELE # [address] PT DENIES CHEST PAIN. ALL QUESTIONS AND CONCERNS ADDRESSED.
--- NOTE | 2018-05-10 09:11 | NUR ---
IN TO ADMINISTER MEDICATION (SEE eMAR)
--- NOTE | 2018-05-10 12:45 | NUR ---
INFORMED OF PT BP 182/67. PAGE GATED DR SANTANA FOR PRN MEDICATION.
--- NOTE | 2018-05-10 13:02 | NUR ---
DR SANTANA PAGED AGAIN FOR PRN BP MEDICATION.
--- NOTE | 2018-05-10 13:56 | NUR ---
IN TO ASSESS PATIENT NEEDS. ALL NEEDS MET.
--- NOTE | 2018-05-10 16:22 | NUR ---
SPOKE WITH DR SANTANA PT BP IS 174/70. DR SANTANA TO PLACE ORDERS.
--- NOTE | 2018-05-10 16:56 | NUR ---
IN TO ADMINISTER MEDICATION FOR BP. WILL RECHECK IN 30 MINUTES.
--- NOTE | 2018-05-10 19:22 | NUR ---
REPORT GIVEN TO LORENZA OWEN. PT SITTING COMFORTABLY AT EDGE OF BED WITH AT BEDSIDE. ALL NEEDS MET. ALL QUESTIONS AND CONCERNS ADDRESSED. ALL CARES ENDORSED.
--- NOTE | 2018-05-10 19:47 | NUR ---
RECEIVED AWAKE , SITTING AT THE EDGE OF THE BED. FAMILY AT BEDSIDE VERY SUPPORTIVE OF PATIENT'S PLAN OF CARE. DENIES ANY PAIN/DISCOMFORT. PLACED CALL LIGHT WITHIN REACH AND INSTRUCTED TO CALL FOR ANY ASSISTANCE NEEDED AND VERBALIZED UNDERSTANDING.
--- NOTE | 2018-05-11 00:01 | NUR ---
EYES CLOSED, NO FAICAL GRIAMCING NOTED. RESPIRATION EVEN AND UNLABORED. NO S/S OF PAIN/DISCOMFORT.
[2018-05-11 05:55] VITALS: BP 138/53
--- NOTE | 2018-05-11 06:50 | NUR ---
DENIES ANY PAIN/DISCOMFORT AT THIS TIME. ALL NEEDS ATENDED.
--- NOTE | 2018-05-11 07:19 | NUR ---
RECEIVED PT FROM SHIFT NURSE ASLEEP BUT AROUSABLE. NO ACUTE DISTRESS NOTED. TELE 31 NSR. RT UPPER CHEST TREVOR CATH IN PLACE. HEPLOCK PATENT. BED IN LOW POSITION. SIDE RAILS UPX2 AND CALL LIGHT WITHIN REACH. WILL CONTINUE TO MONITOR.
--- NOTE | 2018-05-11 08:25 | NUR ---
PT CURRENTLY RECEIVING DIALYSIS AND TOLERATING WELL. WILL CONTINUE TO MONITOR.
[2018-05-11 08:45] VITALS: BP 153/56
--- NOTE | 2018-05-11 11:30 | NUR ---
DIALYSIS COMPLETED WITH OUTPUT OF 3.1L. PT IN NO ACUTE DISTRESS. WILL CONTINUE TO MONITOR.
[2018-05-11 13:00] VITALS: BP 144/73
--- NOTE | 2018-05-11 14:50 | NUR ---
PT SITTING IN BED WATCHING TV. DENIES ANY PAIN OR DISCOMFORT. CALL LIGHT WITHIN REACH. WILL CONTINUE TO MONITOR.
--- NOTE | 2018-05-11 15:27 | NUR ---
Follow-Up Nutrition Assessment Dx: Fever, UTI Labs: (05/08) Na 139, K 4, BG 130H, BUN 28, Cr 5.7H, Ca 9.3, P 3.9, Mg 2.1, WBC 9.9, H/H 8.1L/25L, A1c 6.5H BG readings (05/09-05/11): 107-311 mg/dL. Some readings >180 mg/dL. Meds: Apresoline, Charlotte children's aspirin, Colace, D50%, Ferrous sulfate, Humulin, Lipitor, Merrem, Neurontin, Norvasc, Normodyne, Procrit, Prilosec, Tylenol, Vancomycin, Zofran Diet: Renal with Nepro QD PO Intake: (05/10) B: 100% L: 75% D: 60% (05/09) B: 100% L: 90% D: 50% (05/08) B: 100% L: 100% D: 75%. Average PO intake 83% x 3 days. Wt: 179# (81.4 kg) Skin: Rt. hand scar Wilmar: 20 Edema: None GI: Last BM x 1 (05/11) HD output: (05/11) 3100 mL (05/09) 2000 mL (05/07) 2400 mL Per provider progress notes, pt. pending for home health to continue IV Meroperem. Otherwise, no acute events overnight. Pt. seen laying in bed during visit. Endorses good and improved appetite with good tolerance to diet. No reports of GI distress noted. No major change from previous nutrition assessment. Estimated Nutritional Needs Based on adjusted body weight 63 kg: No changes from previous assessment. Energy: 2822-5780 kcal/d (30-35 kcal/kg-HD maintenance) Protein: 76-88 g/d (1.2-1.4 g/kg)-HD maintenance and preservation of lean body mass Fluid: 3213-7272 ml/d (1 ml/kcal-fluid balance) or per doctor Nutrition Diagnosis 1. Altered nutrition related lab values r/t endocrine and renal dysfunction AEB Cr 3.4, A1c 6.5, and occasional BG readings >180 mg/dL x 2 days. (Ongoing) 2. Increased nutrient needs r/t altered metabolic demands AEB pt. undergoing maintenance HD and output range 5344-5950 mL during HD sessions. (Ongoing) Intervention/RD recommendations 1. Recommended to continue renal diet with Nepro QD for HD maintenance. 2. Nutrition education handouts for DM management/Renal disease management provided to pt. at previous assessment. 3. If PO intake <75% by following assessment, will consider increasing frequency of ONS Nepro. Monitor/Evaluate Goal: PO intake at least 75% of estimated needs (met) New goal: PO intake at least 80% of estimated needs Monitor: PO intake, Labs, GI function, diet tolerance, BG <180 mg/dL F/U in 3-5 days as moderate risk (05/14-05/16)
[2018-05-11 17:47] VITALS: BP 122/80
--- NOTE | 2018-05-11 18:08 | NUR ---
PT ASLEEP IN BED BUT AROUSABLE. NO ACUTE DISTRESS NOTED. RESP EVEN AND UNLABORED. 02 SAT 100% HEPLOCK PATENT. BED IN LOW POSITION. SIDE RAILS UPX2 AND CALL LIGHT WITHIN REACH. WILL BE ENDORSED.
--- NOTE | 2018-05-11 19:32 | NUR ---
AAO X 4. SPEECH CLEAR AND APPROPRIATE. BREATHING EVEN AND UNLABORED ON ROOM AIR. AV SHUNT TO LEFT UPPER ARM, POSITIVE FOR BRUITTS AND THRILLS. DIALYSIS CATHETER TO RIGHT UPPER CHEST, DRESSING CD. SALINE LOCK TO RIGHT IV. STATED HAVING PAIN WHEN ATTEMPTED TO FLUSH. MIDLINE CATHETER TO RIGHT UPPER ARM. DRESSING CDI. FLUSHED WELL WITH 8ML NS. CALL LIGHT WITHIN EASY REACH. ON CONTACCT ISOLATION.
[2018-05-11 20:57] VITALS: BP 185/74
--- NOTE | 2018-05-11 21:44 | NUR ---
completed infusion of merrem ivpb. flushed midline catheter with 8ml ns. flushed well.
[2018-05-11 22:00] VITALS: BP 162/51
--- NOTE | 2018-05-11 22:26 | NUR ---
INFORMED DR. SHIN BP EARLIER WAS 185/74. DUE APRESOLINE PO ADMINISTERED. BP RETAKEN, 162/51. INFORMED DR. SHIN. NO NEW ORDERS.
--- NOTE | 2018-05-12 00:41 | NUR ---
eyes closed, breathing even and unlabored. call light within easy reach.
[2018-05-12 05:46] VITALS: BP 147/69
[2018-05-12 05:52] LABS: BASOPHIL % 0.6 % (0-2); PLATELET COUNT 342 x10^3mcL (130-400)
--- NOTE | 2018-05-12 06:02 | NUR ---
slept through most of shift. easily awakened. breathing even and unlabored on room air. kept on contact isolation.
[2018-05-12 06:03] LABS: CALCIUM 9.4 mg/dL (8.5-10.1); CARBON DIOXIDE 23.5 mmol/L (21-32); MAGNESIUM 1.9 mg/dL (1.8-2.4); PHOSPHOROUS 4.4 mg/dL (2.5-4.9); POTASSIUM SERUM 4.4 mmol/L (3.5-5.1)
[2018-05-12 06:06] LABS: CREATININE SERUM 4.9 mg/dL (0.6-1.0)
[2018-05-12 06:35] LABS: RED CELL DISTRIBUTION WIDTH 17.6 % (11.5-14.5)
--- NOTE | 2018-05-12 07:03 | NUR ---
RECEIVED PT FROM MANNY RN, PT FOUND RESTING IN BED WITH BOTH EYES CLOSED. NO S/S OF ACUTE DISTRESS. NO S/S OF CHEST PAIN. NO SOB ON ROOM AIR. PT HAS MIDLINE TO AIYANA HOGAN. BED IN LOW POSITION. CALL LIGHT WITHIN REACH. WILL CONTINUE TO MONITOR.
--- NOTE | 2018-05-12 07:17 | NUR ---
eyes closed, breathing even and unlabored. in no acute distress. endorsed to nurse janell
[2018-05-12 08:42] VITALS: BP 124/70
--- NOTE | 2018-05-12 11:17 | NUR ---
PT SITTING AT SIDE OF BED. DENIES PAIN. NO SOB ON ROOM AIR. NO CHEST PAIN. PT CALM/COOPERATIVE. CONTACT PREC. IN PLACE. BED IN LOW POSITION. CALL LIGHT WITHIN REACH. WILL CONT. TO MONITOR.
[2018-05-12 13:13] VITALS: BP 156/48
--- NOTE | 2018-05-12 15:10 | NUR ---
PT SITTING IN CHAIR IN ROOM. DENIES PAIN. NO SOB ON ROOM AIR. NO CHEST PAIN. CALM/COOPERATIVE. CONTACT. PREC. IN PLACE. BED IN LOW POSITION. CALL LIGHT WITHIN REACH. WILL CONT. TO MONITOR.
[2018-05-12 18:20] VITALS: BP 112/61
--- NOTE | 2018-05-12 18:32 | NUR ---
PT SITTING IN CHAIR AT SIDE OF BED. DENIES PAIN. NO SOB ON ROOM AIR. NO CHEST PAIN. PT CALM/COOPERATIVE. CALL LIGHT WITHIN REACH. WILL ENDORSE TO ONCOMING SHIFT.
--- NOTE | 2018-05-12 19:30 | NUR ---
PT IS A/O x4. ON TELE #31, NSR. DENIES ANY CHEST PAIN OR PRESSURE. PULSES ARE PRESENT. NO EDEMA NOTED. TUNNEL CATH NOTED ON R CHEST, SITE CLEAN AND INTACT. LUNGS CLEAR IN ALL FEILDS. ON RA, DENIES ANY SOB. BOWEL SOUNDS PRESENT x4. DENIES ANY ABD DISTRESS. SKIN WARM AND INTACT. PICC LINE NOTED ON SAMIRA. SITE CLEAN AND INTACT. DENIES ANY PAIN AT THIS TIME. BED IS AT LOWEST SETTING. CALL LIGHT WITHIN REACH. WILL CONTINUE TO MONTIOR.
[2018-05-12 20:49] VITALS: BP 162/65
--- NOTE | 2018-05-13 01:33 | NUR ---
PT IS RESTING IN BED WITH BOTH EYES CLOSED. NO SIGN OF DISTRESS NOTED. BREATHING EVEN AND UNLABORED. EQUAL CHEST RISE AND FALL. BED IS AT LOWEST SETTING. CALL LIGHT WITH REACH. WILL CONTINUE TO MONTIOR.
[2018-05-13 05:14] VITALS: BP 148/54
[2018-05-13 06:23] LABS: BASOPHIL % 0.6 % (0-2); PLATELET COUNT 356 x10^3mcL (130-400)
--- NOTE | 2018-05-13 06:40 | NUR ---
PT IS RESTING IN BED SITTING UP ON THE SIDE OF THE BED. PT DENIES ANY PAIN OR DISTRESS AT THIS TIME. NO ACUTE EVENT OCCURED DURING SHIFT. BED IS AT LOWEST SETTING. CALL LIGHT WITHIN REACH. WILL ENDORSE TO AM NURSE.
[2018-05-13 06:53] LABS: CALCIUM 9.3 mg/dL (8.5-10.1); CARBON DIOXIDE 25.9 mmol/L (21-32); MAGNESIUM 2.3 mg/dL (1.8-2.4); PHOSPHOROUS 5.9 mg/dL (2.5-4.9); POTASSIUM SERUM 4.4 mmol/L (3.5-5.1)
[2018-05-13 07:12] VITALS: BP 143/73; BP 174/70
--- NOTE | 2018-05-13 09:57 | NUR ---
AT 0700 - RECEIVED PATIENT FROM NIGHT NURSE. PATIENT SITTING ON SIDE OF BED. AWAKE, ALERT AND ORIENTED. MONITOR SHOWING SINUS RHYHTM; RATE 90'S. MEDLINE IN [facility] - DRESSING DRY AND INTACT. SITE APPEARS WNL WITH NO REDDNESS OR SWELLING NOTED. TUNNEL CATH TO R CHEST FOR HD. PATIENT SCHEDULED FOR DIALYSIS TODAY. AT 0715 - SPOKE WITH DR MCNAIR REGARDING MERREM. NO CURRENT ORDER FOR THIS MEDICATION - PATIENT HAD RECEIVED 7 DAYS OF IT AND IS TO CONTINUE AT DISCHARGE. AT 0730 - RECEIVED ORDER FOR MERREM.
[2018-05-13 11:26] VITALS: BP 152/64
--- NOTE | 2018-05-13 12:31 | NUR ---
RECEIVED CALL FROM PATIENT'S DAUGHTER Marlene. UPDATED ON CURRENT PLAN. STIL AWAITING CLEARANCE FOR HOME HEALTH AND HENCE DISCHARGE. DIALYSIS NURSE AT [facility], PREPARING FOR HD.
--- NOTE | 2018-05-13 15:05 | NUR ---
DIALYSIS IN PROGRESS. VS WNL.
[2018-05-13 17:20] VITALS: BP 145/57
--- NOTE | 2018-05-13 18:41 | NUR ---
AT 1530 - HD COMPLETED. TOTAL OF 3 LITERS REMOVED. BP POST HD = 140/67 HR 68. AT 1710 - VANCOMYCIN DOSE NOW IN PROGRESS PER EMAR AND PHARMACY DOSING. PATIENT GIVEN PROCRIT SQ. AT 1830 - PATIENT SITTING ON SIDE OF BED. AWAKE, ALERT AND ORIENTED. HAS EATEN DINNER. NO C/O PAIN. WILL ENDORSE CARE TO NIGHT NURSE.
[2018-05-13 20:16] VITALS: BP 131/60
--- NOTE | 2018-05-13 20:30 | NUR ---
FAMILY AT BEDSIDE FOR VISIT DAUGHTER ASKING QUIRIES RE UPDATES OF PT'S PLAN DISCHARGE, ANSWERS ALL QUESTION PER ENDORSEMENT, DAUGHTER WILL FOLLOW UP TOMORROW, PT ON CONTACT ISO FOR STAPH AND MDRO RESULT FOR BLD CX, ESBL URINE AFEBRILE, DENIES PAIN NOR DISCOMFORTS, NO DISTRESS LUNGS CTA, DIALYZED TODAY PER REPORT PUTTING OUT 3L TOLERATED WELL, TUNNEL CATH RT CHEST WITH INTACT DRESSING, PT ALSO HAS HD ACCESS, MIDLINE ACCESS @ [facility], HAS UNUSED VANDANA SHUNT, TELE #31 INPLACED SR IN THE MONITOR NO CP OR PRESSURE, SHIFT ASSESSMENT DONE ATTENDED NEEDS, CALL LIGHT AT REACH WILL CONT TO MONITOR.
--- NOTE | 2018-05-14 04:19 | NUR ---
PT AWAKE SEATED AT THE EDGE OF THE BED, COMPLAINT OF SORE THROAT, NO DISTRESS DENIES COUGHING, PAGED DR WILSON, AWAITING FOR MD TO CALL BACK.
[2018-05-14 05:28] VITALS: BP 151/54
[2018-05-14 06:14] LABS: BASOPHIL % 0.5 % (0-2); PLATELET COUNT 370 x10^3mcL (130-400)
--- NOTE | 2018-05-14 06:26 | NUR ---
LAB CALLED CREA 5.5 PREV 5.6 PT DIALYZED YESTERDAY, AWARE NNO, CEPACOL GIVEN PER PRN ORDER FOR SORE THROAT, PT DENIES ANY PAIN, NO DISTRESS, ATTENDED NEEDS, WILL ENDORSE TO INCOMING SHIFT FOR F/U CARE.
[2018-05-14 06:28] LABS: CALCIUM 9.2 mg/dL (8.5-10.1); CARBON DIOXIDE 29.3 mmol/L (21-32); MAGNESIUM 1.8 mg/dL (1.8-2.4); PHOSPHOROUS 4.9 mg/dL (2.5-4.9); POTASSIUM SERUM 3.8 mmol/L (3.5-5.1); RED CELL DISTRIBUTION WIDTH 17.5 % (11.5-14.5)
[2018-05-14 06:31] LABS: CREATININE SERUM 5.5 mg/dL (0.6-1.0)
--- NOTE | 2018-05-14 08:15 | NUR ---
AT 0720 - RECEIVED PATIENT FROM NIGHT NURSE. SLEEPING. RESPIRATIONS REGULAR. AT 0800 - SITTING UP ON SIDE OF BED, EATING BREAKFAST.
[2018-05-14 09:42] VITALS: BP 151/40
[2018-05-14] MEDS ORDERED: CIP250 PO (10:33)
--- NOTE | 2018-05-14 11:11 | NUR ---
AT 0930 - SEEN BY DR DUDLEY DURING MORNING ROUNDS. PLAN TO DC HOME TODAY.
--- NOTE | 2018-05-14 12:47 | NUR ---
Follow-Up Nutrition Assessment Dx: Fever, UTI Labs: (05/14) Na 137, K 3.8, BG 208H, BUN 43H, Cr 5.5H, Ca 9.2, P 4.9, Mg 1.8, WBC 13.9H, H/H 8.1L/25L, A1c 6.5H BG readings (05/12-05/14): 133-342 mg/dL. Most readings >180 mg/dL. Meds: Apresoline, Charlotte children's aspirin, Cipro, Colace, D50%, Ferrous sulfate, Humulin, Lipitor, Merrem, Neurontin, Normodyne, Norvasc, Procrit, Prilosec, Tylenol, Vancomycin, Zofran Diet: Renal with Nepro QD PO Intake: (05/14) B: 100% (05/13) B/L: 100% D: 80% (05/12) B/L/D 100% Wt: (1215) 168# (76.5 kg) Skin: Rt. hand scar Wilmar: 20 Edema: None GI: Last BM x 1 (05/14) HD output: (05/13) 3000m L (05/11) 3100 mL (05/09) 2000 mL Per provider progress notes, pt. pending for home health to continue IV Meroperem. Otherwise, no acute events overnight. Pt. seen laying in bed during visit. Endorses good and improved appetite with good tolerance to diet. No reports of GI distress noted. No major change from previous nutrition assessment. Estimated Nutritional Needs Based on adjusted body weight 63 kg: No changes from previous assessment. Energy: 8809-5421 kcal/d (30-35 kcal/kg-HD maintenance) Protein: 76-88 g/d (1.2-1.4 g/kg)-HD maintenance and preservation of lean body mass Fluid: 8527-2418 ml/d (1 ml/kcal-fluid balance) or per doctor Nutrition Diagnosis 1. Altered nutrition related lab values r/t endocrine and renal dysfunction AEB Cr 3.4, A1c 6.5, and occasional BG readings >180 mg/dL x 2 days. (Ongoing) 2. Increased nutrient needs r/t altered metabolic demands AEB pt. undergoing maintenance HD and output range 4151-5221 mL during HD sessions. (Ongoing) Intervention/RD recommendations 1. Recommended to continue renal diet with Nepro QD for HD maintenance. 2. Nutrition education handouts for DM management/Renal disease management provided to pt. at previous assessment. 3. If PO intake <75% by following assessment, will consider increasing frequency of ONS Nepro. Monitor/Evaluate Goal: PO intake at least 80% of estimated needs (met) New goal: PO intake at least 80% of estimated needs Monitor: PO intake, Labs, GI function, diet tolerance, BG <180 mg/dL F/U in 3-5 days as moderate risk (05/17-05/19)
--- NOTE | 2018-05-14 12:50 | NUR ---
AT 1200 - SPOKE WITH DR MCNAIR. HE WILL REMOVE PATIENT'S MEDLINE PRIOR TO PATIENT BEING DISCHARGED HOME.
[2018-05-14 13:19] VITALS: BP 142/58
[2018-05-14 13:39] VITALS: BP 142/58
--- NOTE | 2018-05-14 14:28 | NUR ---
DR MCNAIR HAD REMOVED MEDLINE FROM [facility] AT 1230. PATIENT HAS EATEN LUNCH. SPOKE WITH PATIENT'S DAUGHTER, MICHAEL. SHE WILL COME AND TAKE PATIENT HOME. TAKEN OFF CARDIAC MONITORING. PATIENT GETTING DRESSED.
--- NOTE | 2018-05-14 15:47 | NUR ---
PRINTED DISCHARGE INSTRUCTIONS GIVEN AND EXPLAINED TO PATIENT USING [employer] SUPERVISORY CLERK SERVICE ; SUSIE # [id number] PRESCRIPTION PROVIDED. DISCHARGED HOME WITH . TAKEN TO DISCHARGE OFFICE IN WHEELCHAIR BY SLINGER SEQUINS.
== END 2018-05-14 15:45 | disposition home or self-care (01) | DRG 720 ==
LOC: ED 01:11 → DU 06:19
PROVIDERS: Emergency Medicine; Family Medicine; Internal Medicine; Internal Medicine Nephrology; ADMIT Internal Medicine
PROC: 05HB33Z Insertion of Infusion Device into Right Basilic Vein, Percutaneous Approach (ICD-10-PCS; principal; 2018-05-08)
PROC: B54MZZA Ultrasonography of Right Upper Extremity Veins, Guidance (ICD-10-PCS; 2018-05-08)
PROC: 05H933Z Insertion of Infusion Device into Right Brachial Vein, Percutaneous Approach (ICD-10-PCS; 2018-05-09)
PROC: B54MZZA Ultrasonography of Right Upper Extremity Veins, Guidance (ICD-10-PCS; 2018-05-09)
DX: A41.01 Sepsis due to Methicillin susceptible Staphylococcus aureus (principal); N17.0 Acute kidney failure with tubular necrosis; E11.21 Type 2 diabetes mellitus with diabetic nephropathy; D68.69 Other thrombophilia; E11.22 Type 2 diabetes mellitus with diabetic chronic kidney disease; E11.65 Type 2 diabetes mellitus with hyperglycemia; I12.0 Hypertensive chronic kidney disease with stage 5 chronic kidney disease or end stage renal disease; N18.6 End stage renal disease; N39.0 Urinary tract infection, site not specified; B96.29 Other Escherichia coli [E. coli] as the cause of diseases classified elsewhere; E44.1 Mild protein-calorie malnutrition; E02 Subclinical iodine-deficiency hypothyroidism; E78.5 Hyperlipidemia, unspecified; Z99.2 Dependence on renal dialysis; Z68.29 Body mass index [BMI] 29.0-29.9, adult; Z79.84 Long term (current) use of oral hypoglycemic drugs; I69.328 Other speech and language deficits following cerebral infarction
CPT/HCPCS: 82962; 83880; 84439; 87804; J0696; J0885-EC; J1644; J1815; J2185; J2405; J2765; J2997; J3370; J3490; J7030; J7050

== ENCOUNTER 2018-07-28 20:44 | Emergency (ER) | payer MEDICAID ==
[~2018-07-28] VITALS: Ht 154.9 cm; Wt 77.1 kg
[~2018-07-28 20:44] MED LIST changes: +CIP250 PO; +GABAPENTIN100 M2 PO; +GOOD SENSE ASPI81 M3 PO; +HYDRALAZINE HY100 MG PO; +MER500I IV; +VANCOMYCIN1 GM/1001 IV
[2018-07-28 20:54] VITALS: Ht 154.9 cm; Wt 77.1 kg
[2018-07-29 00:42] VITALS: BP 158/92
== END 2018-07-29 00:49 | disposition home or self-care (01) ==
LOC: ED 20:44
DX: J20.9 Acute bronchitis, unspecified (principal); H10.33 Unspecified acute conjunctivitis, bilateral; E11.65 Type 2 diabetes mellitus with hyperglycemia; I10 Essential (primary) hypertension; E78.00 Pure hypercholesterolemia, unspecified; G43.909 Migraine, unspecified, not intractable, without status migrainosus; Z85.3 Personal history of malignant neoplasm of breast; Z99.2 Dependence on renal dialysis
CPT/HCPCS: 82962; 87804; J1815

== ENCOUNTER 2018-12-21 22:03 | Emergency (ER) | payer MEDICAID ==
[~2018-12-21] VITALS: Ht 152.4 cm; Wt 73.5 kg
[2018-12-21 22:13] VITALS: Ht 152.4 cm; Wt 73.5 kg
[2018-12-22 01:59] LABS: BASOPHIL % 0.5 % (0-2); PLATELET COUNT 253 x10^3mcL (130-400)
[2018-12-22 02:02] LABS: RED CELL DISTRIBUTION WIDTH 18.9 % (11.5-14.5)
[2018-12-22 02:19] LABS: ALBUMIN 3.6 g/dL (3.4-5.0); BILIRUBIN TOTAL 0.43 mg/dL (0.20-1.00); C REACTIVE PROTEIN 1.5 mg/dL (<=0.9); CALCIUM 9.2 mg/dL (8.5-10.1); CARBON DIOXIDE 27.2 mmol/L (21-32); TOTAL PROTEIN, SERUM 7.9 g/dL (6.4-8.2); URIC ACID 3.8 mg/dL (2.6-6.0)
[2018-12-22 02:22] LABS: CREATININE SERUM 5.4 mg/dL (0.6-1.0)
[2018-12-22 02:46] LABS: ERYTHROCYTE SED RATE 59 mm/hr (0-30)
[2018-12-22 03:05] VITALS: BP 135/55
== END 2018-12-22 03:05 | disposition home or self-care (01) ==
LOC: ED 22:03
PROVIDERS: Emergency Medicine
DX: M25.572 Pain in left ankle and joints of left foot (principal); E11.22 Type 2 diabetes mellitus with diabetic chronic kidney disease; I12.0 Hypertensive chronic kidney disease with stage 5 chronic kidney disease or end stage renal disease; N18.6 End stage renal disease; G43.911 Migraine, unspecified, intractable, with status migrainosus; Z98.890 Other specified postprocedural states
CPT/HCPCS: 36415; Q0092

== ENCOUNTER 2020-01-22 22:45 | Emergency (ER) | payer MEDICAID ==
[~2020-01-22] VITALS: Ht 154.9 cm; Wt 78.7 kg
[2020-01-22 23:08] VITALS: Ht 154.9 cm; Wt 78.7 kg
[2020-01-23 00:59] VITALS: BP 160/62
== END 2020-01-23 00:59 | disposition home or self-care (01) ==
LOC: ED 22:45
DX: S91.332A Puncture wound without foreign body, left foot, initial encounter (principal); S91.331A Puncture wound without foreign body, right foot, initial encounter; I10 Essential (primary) hypertension; E11.9 Type 2 diabetes mellitus without complications; G43.909 Migraine, unspecified, not intractable, without status migrainosus; E78.00 Pure hypercholesterolemia, unspecified; Z98.890 Other specified postprocedural states; Z99.2 Dependence on renal dialysis; Z85.3 Personal history of malignant neoplasm of breast; W22.8XXA Striking against or struck by other objects, initial encounter; Y93.89 Activity, other specified; Y92.89 Other specified places as the place of occurrence of the external cause; Y99.8 Other external cause status
CPT/HCPCS: Q0092